=== PATIENT | female | born 1945 | race Caucasian/White ===

== ENCOUNTER → 2017-08-09 | Outpatient (CLI) | payer MEDICARE, MEDICAID | LOC: M.WC 01:42 | DX: L89.153 Pressure ulcer of sacral region, stage 3 (principal); F03.90 Unspecified dementia, unspecified severity, without behavioral disturbance, psychotic disturbance, mood disturbance, and anxiety; M81.0 Age-related osteoporosis without current pathological fracture; Z90.710 Acquired absence of both cervix and uterus ==

== ENCOUNTER → 2017-09-06 | Outpatient (CLI) | payer OTHER, MEDICARE, MEDICAID | LOC: M.WC 02:43 | DX: L89.154 Pressure ulcer of sacral region, stage 4 (principal); G20 Parkinson's disease; M81.0 Age-related osteoporosis without current pathological fracture; F02.80 Dementia in other diseases classified elsewhere, unspecified severity, without behavioral disturbance, psychotic disturbance, mood disturbance, and anxiety; Z90.710 Acquired absence of both cervix and uterus ==

== ENCOUNTER → 2017-10-04 | Outpatient (CLI) | payer MEDICARE, MEDICAID | LOC: M.WC 01:38 | DX: L89.153 Pressure ulcer of sacral region, stage 3 (principal); M81.0 Age-related osteoporosis without current pathological fracture; F03.90 Unspecified dementia, unspecified severity, without behavioral disturbance, psychotic disturbance, mood disturbance, and anxiety; Z90.710 Acquired absence of both cervix and uterus ==

== ENCOUNTER → 2017-11-01 | Outpatient (CLI) | payer MEDICARE, MEDICAID | LOC: M.WC 02:07 | DX: G20 Parkinson's disease (principal); L89.154 Pressure ulcer of sacral region, stage 4; F03.90 Unspecified dementia, unspecified severity, without behavioral disturbance, psychotic disturbance, mood disturbance, and anxiety; Z90.710 Acquired absence of both cervix and uterus ==

== ENCOUNTER → 2017-11-29 | Outpatient (CLI) | payer MEDICARE, MEDICAID | LOC: M.WC 02:08 | DX: L89.153 Pressure ulcer of sacral region, stage 3 (principal); G20 Parkinson's disease; F03.90 Unspecified dementia, unspecified severity, without behavioral disturbance, psychotic disturbance, mood disturbance, and anxiety ==

== ENCOUNTER → 2017-12-27 | Outpatient (CLI) | payer MEDICARE, MEDICAID | LOC: M.WC 02:54 | DX: L89.154 Pressure ulcer of sacral region, stage 4 (principal); G20 Parkinson's disease; F03.90 Unspecified dementia, unspecified severity, without behavioral disturbance, psychotic disturbance, mood disturbance, and anxiety; M81.0 Age-related osteoporosis without current pathological fracture; Z90.710 Acquired absence of both cervix and uterus ==

== ENCOUNTER → 2018-01-31 | Outpatient (CLI) | payer MEDICARE, MEDICAID | LOC: M.WC 04:36 | DX: L89.154 Pressure ulcer of sacral region, stage 4 (principal); G20 Parkinson's disease; M81.0 Age-related osteoporosis without current pathological fracture; F03.90 Unspecified dementia, unspecified severity, without behavioral disturbance, psychotic disturbance, mood disturbance, and anxiety; Z90.710 Acquired absence of both cervix and uterus ==

== ENCOUNTER → 2018-03-07 | Outpatient (CLI) | payer MEDICARE, MEDICAID | LOC: M.WC 02-28 05:09 | DX: L89.154 Pressure ulcer of sacral region, stage 4 (principal); M81.0 Age-related osteoporosis without current pathological fracture; G20 Parkinson's disease; F03.90 Unspecified dementia, unspecified severity, without behavioral disturbance, psychotic disturbance, mood disturbance, and anxiety ==

== ENCOUNTER → 2018-04-04 | Outpatient (CLI) | payer MEDICARE, MEDICAID | LOC: M.WC 04:58 | DX: L89.154 Pressure ulcer of sacral region, stage 4 (principal); G20 Parkinson's disease; M81.0 Age-related osteoporosis without current pathological fracture; F03.90 Unspecified dementia, unspecified severity, without behavioral disturbance, psychotic disturbance, mood disturbance, and anxiety ==

== ENCOUNTER → 2018-05-30 | Outpatient (CLI) | payer MEDICARE, MEDICAID | LOC: M.WC 04:55 | DX: L89.153 Pressure ulcer of sacral region, stage 3 (principal); G20 Parkinson's disease; M81.0 Age-related osteoporosis without current pathological fracture; F03.90 Unspecified dementia, unspecified severity, without behavioral disturbance, psychotic disturbance, mood disturbance, and anxiety; Z79.82 Long term (current) use of aspirin ==

== ENCOUNTER → 2018-06-27 | Outpatient (CLI) | payer MEDICARE, MEDICAID | LOC: M.WC 04:47 | DX: L89.153 Pressure ulcer of sacral region, stage 3 (principal); G20 Parkinson's disease; M81.0 Age-related osteoporosis without current pathological fracture; F03.90 Unspecified dementia, unspecified severity, without behavioral disturbance, psychotic disturbance, mood disturbance, and anxiety ==

== ENCOUNTER → 2018-07-25 | Outpatient (CLI) | payer MEDICARE, MEDICAID | LOC: M.WC 08:12 | DX: L89.153 Pressure ulcer of sacral region, stage 3 (principal); G20 Parkinson's disease; M81.0 Age-related osteoporosis without current pathological fracture; F03.90 Unspecified dementia, unspecified severity, without behavioral disturbance, psychotic disturbance, mood disturbance, and anxiety ==

== ENCOUNTER → 2018-08-22 | Outpatient (CLI) | payer MEDICARE, MEDICAID | LOC: M.WC 03:56 | DX: L89.153 Pressure ulcer of sacral region, stage 3 (principal); G20 Parkinson's disease; M81.0 Age-related osteoporosis without current pathological fracture; F03.90 Unspecified dementia, unspecified severity, without behavioral disturbance, psychotic disturbance, mood disturbance, and anxiety ==

== ENCOUNTER → 2018-10-03 | Outpatient (CLI) | payer MEDICARE, MEDICAID | LOC: M.WC 09-19 09:00 | DX: L89.153 Pressure ulcer of sacral region, stage 3 (principal); G20 Parkinson's disease; M81.0 Age-related osteoporosis without current pathological fracture; F03.90 Unspecified dementia, unspecified severity, without behavioral disturbance, psychotic disturbance, mood disturbance, and anxiety ==

== ENCOUNTER 2018-10-18 16:40 | Inpatient (IN) | payer MEDICARE, MEDICAID | END 2018-10-26 13:55 | disposition hospice, home (50) | DRG 871 | LOC: M.ERS 16:40 → M.TBA-ER 18:26 → M.3W 20:20 | PROVIDERS: ADMIT Internal Medicine | DX: A41.89 Other specified sepsis (principal); L89.153 Pressure ulcer of sacral region, stage 3; J18.9 Pneumonia, unspecified organism; G93.40 Encephalopathy, unspecified; N12 Tubulo-interstitial nephritis, not specified as acute or chronic; G40.909 Epilepsy, unspecified, not intractable, without status epilepticus; G20 Parkinson's disease; R74.0 Nonspecific elevation of levels of transaminase and lactic acid dehydrogenase [LDH]; B96.4 Proteus (mirabilis) (morganii) as the cause of diseases classified elsewhere; F02.80 Dementia in other diseases classified elsewhere, unspecified severity, without behavioral disturbance, psychotic disturbance, mood disturbance, and anxiety; Z88.8 Allergy status to other drugs, medicaments and biological substances; Z88.6 Allergy status to analgesic agent; Z91.041 Radiographic dye allergy status; Z79.899 Other long term (current) drug therapy ==